=== PATIENT | male | born 1975 | race Caucasian/White ===

== ENCOUNTER → 2017-12-31 | Outpatient (CLI) | payer OTHER ==
[~2017-12-31] MED LIST: CEPH500C PO
== END | disposition home or self-care (01) ==
LOC: C.LAB 10:14
PROVIDERS: ATTEND Family Medicine
DX: Z13.220 Encounter for screening for lipoid disorders (principal); Z13.1 Encounter for screening for diabetes mellitus

== ENCOUNTER 2018-08-24 17:34 | Inpatient (IN) ==
[2018-08-24] MEDS ORDERED: SODIUM CHLORIDE 0.9% 1000ML 1,000 ML IV SCH (18:15)
[2018-08-24 18:47] LABS: Basophils # (auto) 0.02 K/uL (0-0.2); Basophils % (auto) 0.2 %; Eosinophils # (auto) 0.28 K/uL (0-0.5); Eosinophils % (auto) 2.5 %; Hematocrit (blood only) 33.7 % (42-52); Hemoglobin 11.7 g/dL (14.0-18.0); Immature Granulocytes # (auto) 0.04 K/uL (0.00-0.02); Immature Granulocytes % (auto) 0.4 %; Lymphocytes # (auto) 0.63 K/uL (1.2-3.4); Lymphocytes % (auto) 5.5 %; Mean Corpuscular Hgb Conc 34.7 g/dL (32-36); Mean Corpuscular Volume 89.2 fL (80-100); Mean Platelet Volume 9.1 fL (7.4-10.4); Monocytes # (auto) 0.95 K/uL (0.11-0.59); Monocytes % (auto) 8.3 %; Neutrophils # (auto) 9.46 K/uL (1.4-6.5); Neutrophils % (auto) 83.1 %; Platelet Count 242 K/uL (130-400); RDW Coefficient of Variation 12.2 % (11.5-14.5); RDW Standard Deviation 39.6 fL (36.4-46.3); Red Blood Count 3.78 M/uL (4.7-6.1); White Blood Count 11.38 K/uL (4.8-10.8)
[2018-08-24 19:05] LABS: Alanine Aminotransferase 85 U/L (12-78); Albumin Level 2.8 gm/dl (3.4-5.0); Aspartate Aminotransferase 25 U/L (15-37); Blood Urea Nitrogen 13 mg/dl (7-18); Calcium 8.8 mg/dl (8.5-10.1); Carbon Dioxide 27 mmol/L (21-32); Chloride 98 mmol/L (98-107); Creatinine Clr Calc Pharmacy 110.1 ml/min; Est GFR (African American) 116.3; Est GFR (Non-African American) 100.3; Glucose 113 mg/dl (70-99); Potassium 3.9 mmol/L (3.5-5.1); Sodium 130 mmol/L (136-145)
[2018-08-24 19:15] LABS: Albumin Globulin Ratio 0.6 (0.9-2); Alkaline Phosphatase 86 U/L (45-117); Bilirubin,Total 0.5 mg/dl (0.2-1); Globulin 4.6 gm/dl (2.5-4.0); Total Protein 7.4 gm/dl (6.4-8.2); Troponin I < 0.015 ng/ml (0-0.045)
[2018-08-24 19:36] LABS: Appearance Urine Cloudy (Clear); Bacteria Urine Automated Negative (Negative); Bilirubin Urine Negative (Negative); Blood Urine Negative (Negative); Color Urine Yellow; Glucose Urine UA Negative (Negative); Ketones Urine Negative (Negative); Leukocyte Esterase Urine Negative (Negative); Nitrite Urine Negative (Negative); Protein Urine Negative (Negative); RBC Urine Automated 0-4 /hpf (0-4); Specific Gravity Urine 1.011 (1.000-1.030); Urobilinogen Urine Positive (Negative); pH Urine 6.5 (4.5-7.5)
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
[2018-08-24] MEDS ORDERED: OPTIRAY 320 125ml IV PRN (19:48)
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
[2018-08-24] MEDS ORDERED: VANCOMYCIN HCL 1,750 MG in SODIUM CHLORIDE 0.9% 500 ML IV ONE (20:03)
[2018-08-24] MEDS ORDERED: VANCOMYCIN CONSULT ACTIVE PRN (20:03)
[2018-08-24] MEDS ORDERED: PIPERACILL/TAZOBAC CONSULT ACTIVE PRN (20:03)
[2018-08-24] MEDS ORDERED: PIPERACILLIN/TAZOBACTAM 4.5 GM/120 ML BAG IV ONE (20:03)
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
[2018-08-24 21:37] LABS: Magnesium 2.3 mg/dl (1.8-2.4)
[2018-08-24] MEDS ORDERED: OXYCODONE HCL IR 5 MG TAB (IMMEDIATE RELEASE) PO PRN (21:54)
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
[2018-08-24] MEDS ORDERED: LACTULOSE SYRUP 20 GM/30 ML UDC PO STA (21:58)
[2018-08-24] MEDS ORDERED: PROCHLORPERAZINE 5 MG in SYRINGE 4 ML IV PRN (22:00)
[2018-08-24] MEDS ORDERED: KETOROLAC TROMETHAMINE 15 MG/ML VIAL IV PRN (22:00)
[2018-08-24] MEDS ORDERED: LORazepam 0.25 MG/0.5 ML VIAL IV PRN (22:00)
[2018-08-24] MEDS ORDERED: LACTULOSE SYRUP 20 GM/30 ML UDC ONE (22:11)
[2018-08-24] MEDS ORDERED: XOPENEX/ATROVENT 1.25mg/0.5MG NEB COMBO NEB STA (22:40)
[2018-08-24] MEDS ORDERED: KETOROLAC TROMETHAMINE 15 MG/ML VIAL IV ONE (22:42)
[2018-08-24] MEDS ORDERED: IPRATROPIUM BROMIDE NEB SOLN 0.02% 2.5 ML VIAL INH STA (22:45)
[2018-08-24] MEDS ORDERED: LEVALBUTEROL 1.25MG/0.5ML NEB INH STA (22:45)
[2018-08-24] MEDS ORDERED: methylPREDNISolone 20 MG in SYRINGE 0 ML IV ONE (23:45)
[2018-08-24] MEDS ORDERED: NSS + 20MEQ KCL 20 MEQ/1,000 ML BAG IV ONE (23:45)
[2018-08-24] MEDS ORDERED: CYCLOBENZAPRINE HCL 5 MG TAB PO PRN (23:48)
[2018-08-25] MEDS: LIDOCAINE 5% 1 PATCH TD SCH ×3 (00:11→20:18)
[2018-08-25] MEDS: DOCUSATE SODIUM/SENNA 50/8.6MG TAB PO SCH ×2 (00:11→08:06)
[2018-08-25] MEDS: PIPERACILLIN/TAZOBACTAM 3.375 GM in DEXTROSE 5% 100 ML IV SCH ×2 (01:18→10:17)
[2018-08-25 06:29] LABS: Estimated Average Glucose 117 mg/dl; Hemoglobin A1C 5.7 % (4.5-5.6)
[2018-08-25 06:34] LABS: Basophils # (auto) 0.03 K/uL (0-0.2); Basophils % (auto) 0.3 %; Eosinophils # (auto) 0.02 K/uL (0-0.5); Eosinophils % (auto) 0.2 %; Hematocrit (blood only) 34.1 % (42-52); Hemoglobin 11.9 g/dL (14.0-18.0); Immature Granulocytes # (auto) 0.02 K/uL (0.00-0.02); Immature Granulocytes % (auto) 0.2 %; Lymphocytes # (auto) 0.45 K/uL (1.2-3.4); Lymphocytes % (auto) 4.1 %; Mean Corpuscular Hgb Conc 34.9 g/dL (32-36); Mean Corpuscular Volume 89.3 fL (80-100); Mean Platelet Volume 9.3 fL (7.4-10.4); Monocytes # (auto) 0.22 K/uL (0.11-0.59); Neutrophils # (auto) 10.37 K/uL (1.4-6.5); Neutrophils % (auto) 93.2 %; Platelet Count 245 K/uL (130-400); RDW Coefficient of Variation 12.2 % (11.5-14.5); RDW Standard Deviation 39.7 fL (36.4-46.3); Red Blood Count 3.82 M/uL (4.7-6.1); White Blood Count 11.11 K/uL (4.8-10.8)
[2018-08-25 06:52] LABS: BUN Creatinine Ratio 14.9 (10-20); Calcium 9.4 mg/dl (8.5-10.1); Creatinine Clr Calc Pharmacy 120.4 ml/min; Est GFR (African American) 124.8; Est GFR (Non-African American) 107.7; Potassium 4.1 mmol/L (3.5-5.1)
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
[2018-08-25] MEDS: METOPROLOL SUCC 25MG EXT REL TAB PO SCH (08:07)
[2018-08-25] MEDS: DOXYCYCLINE HYCLATE 100 MG CAP PO SCH ×2 (08:07→20:18)
[2018-08-25] MEDS ORDERED: CEFEPIME CONSULT ACTIVE PRN (12:17)
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
[2018-08-25] MEDS: CEFEPIME 2,000 MG in SYRINGE 7.5 ML IV SCH ×2 (14:45→21:20)
[2018-08-25] MEDS ORDERED: INFLUENZA ADMINISTRATION CHARGE ONE (15:15)
[2018-08-25] MEDS ORDERED: INFLUENZA VIRUS QUAD VACCINE 0.5 ML SYR IM ONE (15:15)
[2018-08-25] MEDS: OXYCODONE HCL IR 5 MG TAB (IMMEDIATE RELEASE) PO PRN (20:17)
[2018-08-25] MEDS: PRAVASTATIN SOD 10 MG TAB PO SCH (20:18)
[2018-08-25] MEDS: ACETAMINOPHEN 325 MG TAB PO PRN (21:19)
[2018-08-26] MEDS: OXYCODONE HCL IR 5 MG TAB (IMMEDIATE RELEASE) PO PRN ×2 (04:54→20:08)
[2018-08-26] MEDS: CEFEPIME 2,000 MG in SYRINGE 7.5 ML IV SCH ×3 (04:55→21:33)
--- NOTE | 2018-08-26 07:13 | XRay Report ---
XR chest 1V portable CLINICAL HISTORY: effusion dyspnea COMPARISON STUDY: 08/24/2017 FINDINGS: Unchanged parenchymal infiltrative change right mid and lower lung. Stent is noted within t he thoracic aorta. Left lung remains clear. IMPRESSION: Unchanged parenchymal infiltrative/contusion atelectatic-type change right hemithorax. N o change from the prior CT study. The above report was generated using voice recognition software. It may contain grammatical, syntax or spelling errors. Electronically signed by: Louis Bernstein M.D. 08/26/2018 7:12 AM
--- NOTE | 2018-08-26 07:59 | Surgery Progress Note ---
Date of Service August 26, 2018 Assessment & Plan (1) Pleural effusion: -pt. noted to have a loculated pleural effusion on right -I do not think this is amendable to thoracentesis -continue treatment for underlying pneumonia -pt. may require decortication, date and time to be determined Subjective Pt. notes his breathing is not labored. He has noted sweats last night. 1 low grade temp noted. Physical Exam Vital Signs (Past 24 Hours): Last Vital Signs Temp 36.8 C 08/26/18 07:07 Pulse 96 H 08/26/18 07:07 Resp 18 08/26/18 07:07 BP 129/81 08/26/18 07:07 Pulse Ox 92 08/26/18 07:07 Respiratory: normal respiratory effort; no respiratory distress and no labored breathing BS are decrease on right side
[2018-08-26 08:33] LABS: Hematocrit (blood only) 32.8 % (42-52); Hemoglobin 11.4 g/dL (14.0-18.0); Mean Corpuscular Hgb Conc 34.8 g/dL (32-36); Mean Corpuscular Volume 88.9 fL (80-100); Mean Platelet Volume 8.9 fL (7.4-10.4); Platelet Count 275 K/uL (130-400); RDW Coefficient of Variation 12.4 % (11.5-14.5); RDW Standard Deviation 39.9 fL (36.4-46.3); Red Blood Count 3.69 M/uL (4.7-6.1); White Blood Count 8.47 K/uL (4.8-10.8)
[2018-08-26 08:48] LABS: BUN Creatinine Ratio 16.2 (10-20); Calcium 9.1 mg/dl (8.5-10.1); Creatinine Clr Calc Pharmacy 116.3 ml/min; Est GFR (African American) 123.1; Est GFR (Non-African American) 106.2
[2018-08-26] MEDS: METOPROLOL SUCC 25MG EXT REL TAB PO SCH (09:48)
[2018-08-26] MEDS: DOXYCYCLINE HYCLATE 100 MG CAP PO SCH ×2 (09:49→20:08)
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
[2018-08-26] MEDS: PRAVASTATIN SOD 10 MG TAB PO SCH (20:08)
[2018-08-26] MEDS: LIDOCAINE 5% 1 PATCH TD SCH (20:09)
[2018-08-26] MEDS: ACETAMINOPHEN 325 MG TAB PO PRN (22:36)
[2018-08-27] MEDS: CEFEPIME 2,000 MG in SYRINGE 7.5 ML IV SCH ×3 (05:45→21:37)
[2018-08-27 06:06] LABS: Creatinine Clr Calc Pharmacy 136.2 ml/min; Est GFR (African American) 131.3; Est GFR (Non-African American) 113.3
[2018-08-27] MEDS: METOPROLOL SUCC 25MG EXT REL TAB PO SCH (08:38)
[2018-08-27] MEDS: OXYCODONE HCL IR 5 MG TAB (IMMEDIATE RELEASE) PO PRN ×2 (08:38→20:15)
[2018-08-27] MEDS: DOXYCYCLINE HYCLATE 100 MG CAP PO SCH ×2 (08:38→20:15)
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
[2018-08-27] MEDS: LIDOCAINE 5% 1 PATCH TD SCH (20:11)
[2018-08-27] MEDS: PRAVASTATIN SOD 10 MG TAB PO SCH (20:15)
[2018-08-28] MEDS: CEFEPIME 2,000 MG in SYRINGE 7.5 ML IV SCH ×3 (05:24→21:59)
[2018-08-28] MEDS: OXYCODONE HCL IR 5 MG TAB (IMMEDIATE RELEASE) PO PRN ×3 (05:27→23:17)
[2018-08-28] MEDS ORDERED: fentaNYL citrate 100 MCG/2 ML VIAL ONE ×2 (06:58→09:16)
[2018-08-28] MEDS ORDERED: MIDAZOLAM HCL 1 MG/ML 2ML VIAL ONE (06:58)
[2018-08-28] MEDS ORDERED: SODIUM CHLORIDE 0.9% PF 50 ML VIAL ONE (07:07)
[2018-08-28] MEDS ORDERED: BUPIVACAINE 0.5 % 5 MG/1 ML MPF 30ML VIAL ONE (07:07)
[2018-08-28] MEDS ORDERED: BUPIVACAINE LIPOSOME 1.3% 266 MG/20 ML VIAL ONE (07:08)
--- NOTE | 2018-08-28 07:15 | History & Physical Bridge Note ---
Date of Service August 28, 2018 History & Physical Bridge Note I have examined the patient, reviewed the History & Physical and in the interval since the performance of the History & Physical I have noted the following changes of clinical significance: no changes noted
[2018-08-28] MEDS ORDERED: ATROPINE SULFATE 0.1 MG/ML 10ML SYR IV PRN (07:53)
[2018-08-28] MEDS ORDERED: PROMETHAZINE HCL 12.5 MG in SODIUM CHLORIDE 0.9% 50 ML IV PRN (07:53)
[2018-08-28] MEDS ORDERED: fentaNYL citrate 100 MCG/2 ML VIAL IV PRN (07:53)
[2018-08-28] MEDS ORDERED: ePHEDrine sulfate 50 MG/ML AMP IV PRN (07:53)
[2018-08-28] MEDS ORDERED: HYDROmorphone INJ 2 MG/ML SYR/VIAL IV PRN (07:53)
[2018-08-28] MEDS ORDERED: ONDANSETRON INJ 2 MG/ML 2 ML VIAL IV PRN ×2 (07:53→11:39)
--- NOTE | 2018-08-28 08:36 | Procedure Note ---
Procedure Note Date of Service August 28, 2018 Radial arterial line placed in OR2 at 0820 in preparation for right VATS with Dr. Prince. Right wrist prepped with chlorhexidine and draped with sterile towels. 20 G angiocath placed under sterile technique utilizing sterile gloves, surgical hats and masks. Catheter threaded using seldinger technique with return of pulsatile, bright red blood. Site covered with occlusive dressing and taped in place. Waveform consistent with correct arterial placement. After placement, fingers of procedural hand had normal perfusion. Patient tolerated procedure well without complications.
[2018-08-28] MEDS ORDERED: PROPOFOL IV EMULSION 10 MG/ML 20 ML VIAL IV ONE (08:41)
[2018-08-28] MEDS ORDERED: ONDANSETRON INJ 2 MG/ML 2 ML VIAL ONE (08:41)
[2018-08-28] MEDS ORDERED: GLYCOPYRROLATE 0.2 MG/ML VIAL ONE (08:41)
[2018-08-28] MEDS ORDERED: LIDOCAINE HCL 2% 2 ML VIAL/AMP(20MG/ML) INFIL ONE (08:41)
[2018-08-28] MEDS ORDERED: DEXAMETHASONE SOD INJ 4 MG/ML VIAL ONE (08:41)
[2018-08-28] MEDS ORDERED: NEOSTIGMINE METHYLSULFATE 5 MG/5 ML SYR ONE (08:41)
[2018-08-28] MEDS ORDERED: ROCURONIUM BROMIDE 10 MG/ML 5 ML VIAL ONE (08:41)
[2018-08-28] MEDS ORDERED: CLINDAMYCIN 600 MG in DEXTROSE 5% 50 ML IV SCH (09:00)
[2018-08-28] MEDS ORDERED: ePHEDrine sulfate 50 MG/ML SYR ONE (09:23)
--- NOTE | 2018-08-28 09:53 | Post Operative Brief Note ---
Immediate Post Op Note v1 Date of Surgery August 28, 2018 Pre & Post Diagnosis Operation Date: 08/28/18 14:50 Pre-Op Diagnosis: clotted hemothorax Post-Op Diagnosis: clotted hemathorax Procedure Operation Date: 08/28/18 14:50 Actual Procedures p Right Thoracoscopy with Evacuation of Hematoma, Decortication(Right) - Pete Prince MD, FACS Surgeon Pete Prince MD, FACS Aerospace Project Manager Svetlana CASTILLO Estimated Blood Loss 50 Findings Consistent with Post-Op Diagnosis Drains Chest Tube
[2018-08-28] MEDS ORDERED: METOCLOPRAMIDE HCL INJ 5 MG/ML 2 ML VIAL IV STA (10:29)
--- NOTE | 2018-08-28 10:29 | XRay Report ---
XR chest 1V portable HISTORY: effusion COMPARISON: Chest 08/26/2018. FINDINGS: Interval placement of right-sided chest tube which terminates in the right lung apex. Tiny right apical pneumothorax with a pleural gap of 4 mm. Right neck base subcutaneous emphysema. Trace r ight pleural effusion has decreased in size. Hazy right midlung zone opacity persists. Left lung is c lear. An aortic stent is again noted. The heart is normal in size. IMPRESSION: 1. Tiny right pneumothorax status post placement of a right chest tube for drainage of the right pleu ral effusion. 2. Decrease in size in the trace right pleural effusion. 3. No change in the right midlung zone hazy airspace opacity. Recommend follow-up to ensure resolutio n. Electronically signed by: Gregg Aleman M.D. 08/28/2018 10:27 AM
[2018-08-28] MEDS ORDERED: METOCLOPRAMIDE HCL INJ 5 MG/ML 2 ML VIAL ONE (10:32)
--- NOTE | 2018-08-28 10:41 | Anesthesiology Progress Note ---
Date of Service August 28, 2018 Anesthesia Post Procedure Vital Signs Vital Signs: Temp Pulse Pulse Pulse Resp BP BP 08/28/18 10:25 76 12 119/78 08/28/18 10:15 72 12 115/69 08/28/18 10:06 36.2 C L 83 14 114/70 08/28/18 07:35 87 08/28/18 07:16 36.8 C 88 18 137/84 08/28/18 03:36 36.5 C 85 18 113/75 08/28/18 00:00 87 08/27/18 23:54 36.7 C 83 18 124/72 08/27/18 15:06 92 H 08/27/18 14:00 36.8 C 86 18 115/71 08/27/18 11:00 37.1 C 81 18 128/74 Pulse Ox 08/28/18 10:25 99 08/28/18 10:15 99 08/28/18 10:06 97 08/28/18 07:35 08/28/18 07:16 94 08/28/18 03:36 94 08/28/18 00:00 08/27/18 23:54 93 08/27/18 15:06 08/27/18 14:00 94 08/27/18 11:00 94 Pain Intensity Right Ribs: Pain Intensity: 0 Notes Mental Status: alert / awake / arousable and participated in evaluation Patient Amnestic to Procedure: Yes Nausea / Vomiting: adequately controlled Pain: adequately controlled Airway Patency, RR, SpO2: stable & adequate BP & HR: stable & adequate Hydration State: stable & adequate Anesthetic Complications: no major complications apparent and Pt Satisfied with anesthetic care
[2018-08-28] MEDS ORDERED: POLYETHYLENE (MIRALAX) 17 GM PACK PO PRN (11:39)
[2018-08-28] MEDS ORDERED: CLINDAMYCIN PHOS 300 MG/2 ML VIAL ONE (12:00)
[2018-08-28 12:12] LABS: Hematocrit (blood only) 33.9 % (42-52); Hemoglobin 11.7 g/dL (14.0-18.0); Mean Corpuscular Hgb Conc 34.5 g/dL (32-36); Mean Corpuscular Volume 89.9 fL (80-100); Mean Platelet Volume 8.8 fL (7.4-10.4); Platelet Count 288 K/uL (130-400); RDW Coefficient of Variation 12.4 % (11.5-14.5); RDW Standard Deviation 40.5 fL (36.4-46.3); Red Blood Count 3.77 M/uL (4.7-6.1); White Blood Count 16.36 K/uL (4.8-10.8)
[2018-08-28 12:26] LABS: INR 1.2 (0.9-1.1)
[2018-08-28] MEDS: D5W AND 1/2NSS 1,000 ML IV SCH ×2 (12:29→21:45)
[2018-08-28] MEDS: ACETAMINOPHEN 1,000 MG/100 ML VIAL IV SCH ×2 (12:29→20:05)
[2018-08-28] MEDS: DOXYCYCLINE HYCLATE 100 MG CAP PO SCH ×2 (12:30→21:07)
[2018-08-28] MEDS: METOPROLOL SUCC 25MG EXT REL TAB PO SCH (12:30)
[2018-08-28 12:31] LABS: BUN Creatinine Ratio 17.2 (10-20); Calcium 9.1 mg/dl (8.5-10.1); Creatinine Clr Calc Pharmacy 101.5 ml/min; Est GFR (African American) 105.3; Est GFR (Non-African American) 90.9; Potassium 4.3 mmol/L (3.5-5.1)
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
[2018-08-28] MEDS: METOCLOPRAMIDE HCL INJ 5 MG/ML 2 ML VIAL IV SCH (18:14)
[2018-08-28] MEDS: MoRPHine SULFATE 2 MG/ML CARP IV PRN (20:12)
[2018-08-28] MEDS: LIDOCAINE 5% 1 PATCH TD SCH ×2 (21:07→21:10)
[2018-08-28] MEDS: DOCUSATE SODIUM 100 MG CAP PO SCH (21:08)
[2018-08-28] MEDS: PRAVASTATIN SOD 10 MG TAB PO SCH (21:08)
[2018-08-29] MEDS: MoRPHine SULFATE 2 MG/ML CARP IV PRN ×2 (00:32→06:01)
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
[2018-08-29] MEDS: METOCLOPRAMIDE HCL INJ 5 MG/ML 2 ML VIAL IV SCH (02:19)
[2018-08-29] MEDS: ACETAMINOPHEN 1,000 MG/100 ML VIAL IV SCH ×2 (05:12→11:52)
[2018-08-29] MEDS: CEFEPIME 2,000 MG in SYRINGE 7.5 ML IV SCH ×2 (05:12→13:22)
--- NOTE | 2018-08-29 07:22 | XRay Report ---
XR chest 1V portable CLINICAL HISTORY: effusion COMPARISON STUDY: Chest CT August 24, 2018. Chest radiograph August 31, 2018. FINDINGS: Right chest tube is in place. A trace right apical pneumothorax is decreased in size. Right mid and lower lung airspace opacity is noted with a right pleural effusion. Lung aeration is slightl y diminished since prior exam. Subcutaneous gas within the right chest wall and neck is again noted. Multiple right-sided rib fractures are better depicted on the chest CT. Stent graft within the thorac ic aorta is noted. IMPRESSION: 1. Slight decrease in size of a trace right apical pneumothorax. Right chest tube in place. 2. Right mid and lower lung airspace opacity with a right pleural effusion. Electronically signed by: Chin Mooney M.D. 08/29/2018 7:20 AM
[2018-08-29] MEDS: D5W AND 1/2NSS 1,000 ML IV SCH (07:56)
--- NOTE | 2018-08-29 07:56 | XRay Report ---
XR chest 1V portable CLINICAL HISTORY: Chest tube removal COMPARISON STUDY: 08/29/2018 FINDINGS: The heart remains mildly enlarged. An aortic stent graft is again visualized. There is decr easing subcutaneous emphysema on the right. The right-sided chest tube has been removed. There are pe rsistent right mid and lower lung zone airspace opacities. No pneumothorax is visualized. There is a trace right pleural effusion.[ IMPRESSION: 1. Persistent right mid and lower lung zone airspace opacities with associated trace pleural effusion 2. Interval removal of the right-sided chest tube. No significant pneumothorax identified Electronically signed by: Jairo Calix M.D. 08/29/2018 7:55 AM
--- NOTE | 2018-08-29 08:06 | Progress Note ---
DATE: 08/29/2018 Alleln looks pretty good today. He states he has some numbness in his chest but has not really complained much in the way of pain. He has drained very little from his chest tube. He has no air leak. His x-ray is unchanged from his postop from yesterday. He is also voiding quite a bit. We will stop his IV fluids and remove his chest tube. From my standpoint, I believe that Mr. Holbrook can probably be discharged later today. He lives locally and if there are any issues his also is employed at [employer] and I instructed them to call me should any issues arise. I would like to see him back in the office in 2 weeks or so with an x-ray.
[2018-08-29 08:22] LABS: INR 1.2 (0.9-1.1); Prothrombin Time 12.6 Seconds (9.0-12.0)
[2018-08-29] MEDS: DOXYCYCLINE HYCLATE 100 MG CAP PO SCH (08:39)
[2018-08-29] MEDS: METOPROLOL SUCC 25MG EXT REL TAB PO SCH (08:39)
[2018-08-29] MEDS: DOCUSATE SODIUM 100 MG CAP PO SCH (08:40)
[2018-08-29] MEDS ORDERED: ENOXAPARIN INJ 40 MG/0.4 ML SYR SQ SCH (09:00)
[2018-08-29] MEDS ORDERED: ASPIRIN 81 MG ECTAB PO SCH (09:00)
[2018-08-29 11:51] VITALS: BP 118/70; PULSE 80; TEMP 98.8; O2SAT 93
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
[2018-08-29 13:19] LABS: Basophils # (auto) 0.05 K/uL (0-0.2); Basophils % (auto) 0.4 %; Eosinophils # (auto) 0.33 K/uL (0-0.5); Eosinophils % (auto) 2.3 %; Hematocrit (blood only) 31.7 % (42-52); Immature Granulocytes # (auto) 0.09 K/uL (0.00-0.02); Immature Granulocytes % (auto) 0.6 %; Lymphocytes # (auto) 1.04 K/uL (1.2-3.4); Lymphocytes % (auto) 7.4 %; Mean Corpuscular Volume 89.8 fL (80-100); Monocytes % (auto) 8.5 %; Neutrophils # (auto) 11.38 K/uL (1.4-6.5); Neutrophils % (auto) 80.8 %; Platelet Count 316 K/uL (130-400); RDW Coefficient of Variation 12.4 % (11.5-14.5); RDW Standard Deviation 40.5 fL (36.4-46.3); Red Blood Count 3.53 M/uL (4.7-6.1); White Blood Count 14.09 K/uL (4.8-10.8)
[2018-08-29 13:22] LABS: Mean Corpuscular Hgb Conc 34.7 g/dL (32-36)
== END 2018-08-29 17:19 | disposition home or self-care (01) | DRG 853 ==
LOC: ED 17:34 → 2N 21:57 → SUATTDRO 21:57 → 2N 23:09 → 3W 08-28 11:09